=== PATIENT | female | born 1980 | race Native Hawaiian/Other Pacific Islander ===

== ENCOUNTER 2019-12-13 19:54 | Outpatient (CLI) | payer OTHER ==
[2019-12-13 20:34] LABS: PLATELET COUNT 357 K/uL (152-353)
[2019-12-13 20:51] LABS: POTASSIUM 3.5 mmol/L (3.6-5.2)
== END 2019-12-13 23:59 | disposition home or self-care (01) ==
LOC: LABW 19:54
PROVIDERS: Nurse Practitioner Family
DX: I10 Essential (primary) hypertension (principal); M54.5 Low back pain; Z79.899 Other long term (current) drug therapy; R53.83 Other fatigue; M79.10 Myalgia, unspecified site
CPT/HCPCS: 36415; 80053; 80061; 81000; 82607; 83735; 84439; 84443; 85027

== ENCOUNTER 2020-02-08 00:32 | Outpatient (CLI) | payer OTHER ==
[2020-02-08 01:27] LABS: PLATELET COUNT 331 K/uL (152-353)
== END 2020-02-08 18:56 | disposition home or self-care (01) ==
LOC: LABW 00:32
PROVIDERS: Nurse Practitioner Family
DX: D72.829 Elevated white blood cell count, unspecified (principal)
CPT/HCPCS: 36415; 85007; 85027

== ENCOUNTER 2020-04-08 08:16 | Outpatient (CLI) | payer OTHER | END 2020-04-08 19:46 | disposition home or self-care (01) | LOC: US 08:16 | PROVIDERS: ATTEND Nurse Practitioner Family | DX: M54.2 Cervicalgia (principal); E04.9 Nontoxic goiter, unspecified ==

== ENCOUNTER 2020-09-17 19:51 | Outpatient (CLI) | payer OTHER ==
[2020-09-17 20:14] LABS: PLATELET COUNT 404 K/uL (152-353)
[2020-09-17 21:05] LABS: POTASSIUM 3.8 mmol/L (3.6-5.2)
== END 2020-09-17 21:39 | disposition home or self-care (01) ==
LOC: LABW 19:51
PROVIDERS: ATTEND Nurse Practitioner Family
DX: I10 Essential (primary) hypertension (principal); G43.909 Migraine, unspecified, not intractable, without status migrainosus; M51.37 Other intervertebral disc degeneration, lumbosacral region; F32.9 Major depressive disorder, single episode, unspecified; Z79.899 Other long term (current) drug therapy
CPT/HCPCS: 36415; 80053; 80061; 81000; 82043; 82607; 84443; 85027

== ENCOUNTER 2020-10-04 01:40 | Outpatient (CLI) | payer OTHER ==
[2020-10-04 02:08] LABS: PLATELET COUNT 350 K/uL (152-353)
== END 2020-10-04 19:09 | disposition home or self-care (01) ==
LOC: LABW 01:40
PROVIDERS: ATTEND Nurse Practitioner Family
DX: D72.829 Elevated white blood cell count, unspecified (principal)
CPT/HCPCS: 36415; 85027